=== PATIENT | male | born 1960 | race Caucasian/White ===

== ENCOUNTER → 2019-12-15 | Outpatient (CLI) | payer OTHER | LOC: SJCVCIMAG 08:29 | DX: I25.10 Atherosclerotic heart disease of native coronary artery without angina pectoris (principal); I10 Essential (primary) hypertension; E78.5 Hyperlipidemia, unspecified; E11.9 Type 2 diabetes mellitus without complications; Z79.899 Other long term (current) drug therapy; Z98.61 Coronary angioplasty status; Z79.82 Long term (current) use of aspirin ==

== ENCOUNTER → 2020-06-23 | Outpatient (CLI) | payer OTHER ==
[~2020-06-23] VITALS: Ht 175.3 cm; Wt 79.4 kg
[~2020-06-23] MED LIST: 8 HOUR C500 MG PO; ASA81BEC PO; BENICAR40 MG PO; BYSTOLIC10 MG PO; DDAVP INJECTION; FISH OIL 1,0001 EAC9 PO; LIPITOR40 MG PO; NORVASC 2.5 MG2.5 M1 PO; TESTOSTERO200 MG/1 M IM; VITAMIN D310 MC1 PO; WELLBUTRIN SR150 MG PO; ZETIA10 MG PO
[2020-06-23 07:07] VITALS: BP 159/86
[2020-06-23 07:52] LABS: HEMATOCRIT 43.3 % (42.0-52.0); MCH 33.6 pg (26.0-34.0); MCHC 34.8 g/dL (28.0-37.0); MCV 96.7 fL (80.0-100.0); RBC 4.48 mil/uL (4.50-6.00); WBC 6.1 thou/uL (4.0-11.0)
[2020-06-23 07:56] LABS: CALCIUM 8.6 mg/dL (8.5-10.1); POTASSIUM 4.5 mmol/L (3.5-5.1)
--- NOTE | 2020-06-23 17:20 | CATHLAB ---
[facility] [place] [address] INVASIVE PROCEDURE REPORT Name: JONY GILL Room #: REG EDE [place]#: [id number] Admission: 06/23/20 Attend Phys: Bladimir Willett MD, Discharge: Date of : 56 Report #: [id number] THIS REPORT FOR: cc: Doyle Fink MD, Troy A. MD Mancuso, Gerald M. MD [facility] ~ APPROVED REPORT Study performed: 06/23/2020 07:28:16 Patient Details Patient Status: Out-Patient Room #: The patient is a 60 year-old male Event Personnel Bladimir Willett Real Estate Representative, Crissy Benson RTR Monitor, Shirley Chi RTR Brandan Crowley Dexter RN emergency nurse Performed Art Access - R femoral artery* Left Heart Cath w/or w/o Coronaries [id number] [facility] Aortogram Abdominal Peripheral Angio 865129 Hemostasis w/ Mynx 86493 Initial Mod Sed Same Phys/QHP Gr5y 177703 08388 Mod Sed Same Phys/QHP Ea 198611 Procedure Narrative The Right Groin^ was infiltrated with 1% Lidocaine subcutaneous anesthesia. A PINNACLE 6FR Sheath #[id number] sheath was inserted into the RFA^. Coronary angiography was performed using coronary diagnostic catheters. The right coronary system was accessed and visualized with a JR4 catheter. The left coronary system was accessed and visualized with a JL4 catheter. The left ventricle was accessed and visualized with a PIGTAIL catheter. Left ventriculogram was performed in 30 degree projection. An aortogram of the abdominal aorta was performed. Pre-demployment femoral angiogram was performed . Closure device was deployed with a Fr MYNXGRIP 6/7F #[id number]. The patient tolerated the procedure well and there were no complications associated with the procedure. There was no hematoma. Intraoperative Conscious Sedation Sedation start time: 8:42 Case end Time: 9:08 Fentanyl 50 mcg Versed 1.5 mg Fluoro Time: 1.40 minutes [facility] [address] [place] [address] INVASIVE PROCEDURE REPORT Name: JONY GILL Shu Room #: [facility]#: [id number] Admission: 06/23/20 Attend Phys: Bladimir Willett, Discharge: Date of : 56 Report #: [id number] Dose: DAP 5062.50 cGycm2 618 mGy Contrast Type and Amount: Omnipaque 110 ml Hemodynamics The aortic pressure is 142/82 mmHg with a mean of 103 mmHg. The left ventricular pressure is 162/6 mmHg with a mean of mmHg. The left ventricular end diastolic pressure is 27 mmHg. Conclusion #1. Normal left ventricular size and systolic function EF 60%. #2 abdominal aortogram is mild ectasia but no aneurysm single bilateral renal arteries are widely patent. #3 left main with mild disease giving rise to LAD and circumflex. #4 the LAD is mildly calcified proximally. There is an eccentric 40 to 50% mid vessel lesion with mild disease involving this distal vessel which wraps the apex. #5 circumflex OM is nondominant proximal calcification and eccentric 30 to 40% proximal lesion filling a large OM branch. No occlusive disease. #6 dominant right coronary artery with a eccentric 40 to 50% proximal lesion filling a dominant vessel with relatively small PDA PERLA. There is a proximal mid vessel stent previously placed which appears widely patent. Recommendations and plan: Continue aggressive risk factor modification. There is no indication for coronary intervention. <ELECTRONICALLY SIGNED> By: Bladimir Willett MD, FACC 06/23/201718 18 18 Bladimir Willett MD, FACC /INF
== END | disposition home or self-care (01) ==
LOC: CATH 06:33
PROVIDERS: ATTEND Internal Medicine Cardiovascular Disease
DX: I25.10 Atherosclerotic heart disease of native coronary artery without angina pectoris (principal); I77.811 Abdominal aortic ectasia; R94.31 Abnormal electrocardiogram [ECG] [EKG]; I10 Essential (primary) hypertension; E78.5 Hyperlipidemia, unspecified; Z98.890 Other specified postprocedural states; Z79.899 Other long term (current) drug therapy; Z79.82 Long term (current) use of aspirin

== ENCOUNTER → 2021-08-08 | Outpatient (CLI) | payer BC, OTHER | LOC: SJCVCIMAG 14:10 | PROVIDERS: ATTEND Internal Medicine Cardiovascular Disease | DX: I25.10 Atherosclerotic heart disease of native coronary artery without angina pectoris (principal); R07.89 Other chest pain; Z95.5 Presence of coronary angioplasty implant and graft ==